=== PATIENT | male | born 1995 | race Caucasian/White ===

== ENCOUNTER 2017-08-18 12:39 | Emergency (ER) | payer OTHER ==
[2017-08-18] MEDS: PERCOCET 5MG/325MG TAB PO (13:14)
== END 2017-08-18 14:43 | disposition home or self-care (01) ==
LOC: M ED 12:39
DX: Z04.1 Encounter for examination and observation following transport accident (principal); S16.1XXA Strain of muscle, fascia and tendon at neck level, initial encounter; V43.52XA Car driver injured in collision with other type car in traffic accident, initial encounter; Y92.410 Unspecified street and highway as the place of occurrence of the external cause; M51.26 Other intervertebral disc displacement, lumbar region; Z91.018 Allergy to other foods
CPT/HCPCS: 70450

== ENCOUNTER 2020-02-23 20:59 | Emergency (ER) | payer OTHER ==
[~2020-02-23] VITALS: Ht 175.3 cm; Wt 68.2 kg
[~2020-02-23 20:59] MED LIST: CYCL-707 PO; IBUP-1022 PO
--- NOTE | 2020-02-23 22:25 | REPVR ---
PROCEDURE INFORMATION: Exam: CT Lumbar Spine Without Contrast Exam date and time: 02/23/2020 9:55 PM Age: 24 years old Clinical indication: Low back pain; Additional info: Lumbar pain TECHNIQUE: Imaging protocol: Computed tomography images of the lumbar spine without contrast. Radiation optimization: All CT scans at this facility use at least one of these dose optimization techniques: automated exposure control; mA and/or kV adjustment per patient size (includes targeted exams where dose is matched to clinical indication); or iterative reconstruction. COMPARISON: CT Spine, lumbar w/o contrast 08/18/2017 1:20 PM FINDINGS: Vertebrae: There is no lumbar vertebral fracture. Vertebral bodies maintain their height. There is no fracture of the posterior elements. There is no focal osseous lesion. T12-L1: No central stenosis, foraminal stenosis bulge. L1-L2: Mild disc space narrowing. No disc bulge. No central or foraminal stenosis. L2-L3: No central stenosis, foraminal stenosis or disc bulge. L3-L4: Mild disc bulge. No central or foraminal stenosis. L4-L5: The mild disc bulge. There is facet hypertrophy. There is minimal endplate spondylosis. There is mild right foraminal stenosis. No central stenosis. L5-S1: Minimal spondylosis. Small central disc protrusion effacing the ventral epidural fat. Facet hypertrophy with mild left foraminal stenosis. Soft tissues: Unremarkable. Other findings: The patient was scanned in the prone position for unknown reasons. IMPRESSION: 1. No fracture or acute findings. 2. Mild degenerative findings and disc disease as described above are stable compared with prior scan . Electronically signed by: Vlad Grossman On 02/23/2020 22:24:59 PM
[2020-02-23 22:39] VITALS: BP 111/52
[2020-02-23] MEDS ORDERED: KETOROLAC 60MG 2ML VIAL IM ONE (22:45)
== END 2020-02-23 23:38 | disposition home or self-care (01) ==
LOC: M ED 20:59
DX: M51.86 Other intervertebral disc disorders, lumbar region (principal); F17.200 Nicotine dependence, unspecified, uncomplicated; Z91.018 Allergy to other foods
CPT/HCPCS: 72131; 96372; 99283; J1885

== ENCOUNTER → 2020-05-03 | Outpatient (CLI) | payer OTHER | LOC: M LAB 14:36 | PROVIDERS: ATTEND Physical Medicine & Rehabilitation | DX: Z01.812 Encounter for preprocedural laboratory examination (principal) ==